=== PATIENT | male | born 1985 | race American Indian/Alaskan Native ===

== ENCOUNTER 2019-01-18 12:28 | Emergency (ER) | payer OTHER ==
[2019-01-18 13:31] VITALS: BP 107/57
--- NOTE | 2019-01-18 13:31 | Emergency Department Report ---
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 Due to findings the following was ordered: ED Disposition for MSE Condition: Stable
[2019-01-18] MEDS ORDERED: IBUPROFEN PO ONE (13:32)
[2019-01-18] MEDS ORDERED: FLEXERIL PO ONE (13:32)
--- NOTE | 2019-01-18 13:43 | Emergency Department Report ---
ED Back Pain/Injury HPI - General Chief Complaint: Extremity Injury, Upper Stated Complaint: SHOULDER PAIN/HEADACHE Time Seen by Provider: 01/18/19 12:43 Source: patient Limitations: No Limitations - History of Present Illness Initial Comments: Patient is a 33-year-old otherwise healthy -[place] male who comes to the ER complaining of right trapezius area pain. 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 He has had the pain now for several weeks and just wanted to be checked. He does have trapezius muscle spasm on exam. - Related Data Previous Rx's Medication Instructions Recorded Last Taken Type Cyclobenzaprine [Flexeril] 10 mg PO TID PRN #10 tablet 01/18/19 Unknown Rx Allergies Allergy/AdvReac Type Severity Reaction Status Date / Time No Known Allergies Allergy Unverified 01/18/19 12:29 ED Review of Systems ROS: Stated complaint: SHOULDER PAIN/HEADACHE Other details as noted in HPI Comment: All other systems reviewed and negative ED Past Medical Hx - Past Medical History Medical history: no medical history ED Back Pain Physical Exam - Exam General: Vital signs noted. No distress. Alert and acting appropriately. - Head Head exam: Present: atraumatic, normocephalic - Eye Eye exam: Present: normal appearance, EOMI. Absent: nystagmus - ENT ENT exam: Present: normal exam, normal orophraynx, mucous membranes moist, normal external ear exam, no lymphadenopathy - Neck Neck exam: Present: normal inspection, full ROM. Absent: tenderness, meningismus - Respiratory Respiratory exam: Present: normal lung sounds bilaterally. Absent: respiratory distress, wheezes, rales, rhonchi, stridor, chest wall tenderness, accessory muscle use, decreased breath sounds, prolonged expiratory - Cardiovascular Cardiovascular Exam: Present: regular rate, normal rhythm, normal heart sounds. Absent: bradycardia, tachycardia, irregular rhythm, systolic murmur, diastolic murmur, rubs, gallop, JVD, edema - GI/Abdominal GI/Abdominal exam: Present: soft, non tender on light and deep palpation. Absent: distended, tenderness, guarding, rebound, rigid, pulsatile mass - Rectal Rectal exam: Present: deferred - Extremities Exam Extremities exam: Present: normal inspection, full ROM, other (2+ pulses noted in the bilateral upper extremities. Bilateral lower extremities with 2+ DP bilateral. Full ROM. Right trap muscle spasm on exam. - Back Exam Back exam: Present: normal inspection, full ROM. Absent: tenderness, CVA tenderness (R), CVA tenderness (L), paraspinal tenderness, vertebral tenderness - Neurological Exam Neurological exam: Present: alert, oriented X3, normal gait, other (Extraocular movements intact. Tongue midline. No facial droop. Facial sensation intact to light touch in the V1, V2, V3 distribution bilaterally. 5 and 5 strength in 4 extremities.. Sensation is intact to light touch in 4 extremities.). Absent: motor sensory deficit - Psychiatric Psychiatric exam: normal affect and mood - Skin Skin exam: Present: warm, dry, intact, normal color. 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 ED Disposition Clinical Impression: Trapezius muscle spasm Disposition: DC-01 TO HOME OR SELFCARE Is pt being admited?: No Does the pt Need Aspirin: No Condition: Stable Instructions: Muscle Spasm (ED) Additional Instructions: warm compresses follow up pcp referral below Prescriptions: Cyclobenzaprine [Flexeril] 10 mg PO TID PRN #10 tablet PRN Reason: Muscle Spasm Referrals: [facility] [Outside] - 3-5 Days Forms: Work/School Release Form(ED) Time of Disposition: 13:42
== END 2019-01-18 14:00 | disposition home or self-care (01) ==
LOC: ED 12:28
DX: M62.838 Other muscle spasm (principal); R51 Headache